=== PATIENT | female | born 1965 | race Caucasian/White ===

== ENCOUNTER 2019-01-04 18:36 | Emergency (ER) | payer OTHER ==
--- NOTE | 2019-01-04 18:44 | PDOC ---
Rapid Medical Evaluation Chief Complaint: Pain, Acute Time Seen by Provider: 01/04/19 18:39 Medical Evaluation: 01/04/19 18:40 I have performed a brief in-person evaluation of this patient. 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 report felt dizzy which has improved Pertinent physical exam findings: small lump with localized 2cm swelling to hairline of left forehead. no open wound I have ordered the following:nothing The patient will proceed to the ED for further evaluation. Discharge Disposition - Diagnosis Head contusion Qualifiers: Encounter type: initial encounter Contusion of head detail: scalp Qualified Code(s): S00.03XA - Contusion of scalp, initial encounter - Discharge Dispostion Condition at time of disposition: Stable - Referrals - Patient Instructions - Post Discharge Activity
[2019-01-04 18:46] VITALS: BP 122/76; PULSE 65; TEMP 98.4; BMI 25.6
--- NOTE | 2019-01-04 20:39 | PDOC ---
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 No: Vomiting Neurological: Yes: Headache, Dizziness *Physical Exam - Vital Signs Last Vital Signs Temp Pulse Resp BP Pulse Ox 98.4 F 65 16 122/76 100 01/04/19 18:42 01/04/19 18:42 01/04/19 18:42 01/04/19 18:42 01/04/19 18:42 - Physical Exam Comments: 01/04/19 20:37 HEAD: NC/AT EYES: Conjuntiva clear Ears: Canals and TM's normal NOSE: No d/c THROAT: Moist mucous membrances, oral pharanx clear, uvula midline NECK: Supple without adenopathy CARDIAC: S1 S2 LUNGS: CTA Full and Equal breath sounds ABDOMEN: Soft NT ND MS: Full ROM in all joints without edema NEUROLOGIC: No gross sensory or motor deficits, NVID SKIN: Normal color and temperature no lesions or rashes ED Treatment Course - RADIOLOGY Radiology Studies Ordered: Category Date Time Status HEAD CT WITHOUT CONTRAST [CT] Stat CT Scan 01/04/19 19:35 Completed Medical Decision Making - Medical Decision Making 01/04/19 20:37 CAT scan negative, we'll treat as closed head injury follow-up with neurology no strenuous activity until cleared by neurology *DC/Admit/Observation/Transfer Diagnosis at time of Disposition: Closed head injury Head contusion Qualifiers: Encounter type: initial encounter Contusion of head detail: scalp Qualified Code(s): S00.03XA - Contusion of scalp, initial encounter - Discharge Dispostion Disposition: HOME Condition at time of disposition: Stable Decision to Admit order: No - Referrals Referrals: Ji Winn MD [Staff Physician] - - Patient Instructions Printed Discharge Instructions: DI for Closed Head Injury Additional Instructions: Return to the emergency room for worsening symptoms. Tylenol for pain as directed. Follow-up with neurology in 1-2 days without fail for further evaluation and treatment options no strenuous activity until cleared by neurology. - Post Discharge Activity
== END 2019-01-04 20:42 | disposition home or self-care (01) ==
LOC: JERFT 18:36
DX: S00.03XA Contusion of scalp, initial encounter (principal); W22.8XXA Striking against or struck by other objects, initial encounter; Y93.89 Activity, other specified; Y92.34 Swimming pool (public) as the place of occurrence of the external cause; Y99.8 Other external cause status
CPT/HCPCS: 70450-TC; 99281-25

== ENCOUNTER 2021-05-10 04:41 | Day surgery (SDC) | payer OTHER ==
[2021-05-10 11:04] VITALS: BMI 27.8
[2021-05-10 12:52] VITALS: BP 124/72; PULSE 52; TEMP 97.8
== END 2021-05-10 13:04 | disposition home or self-care (01) ==
LOC: JASU-ENDO 04:41
PROVIDERS: ATTEND Internal Medicine Gastroenterology
PROC: 0DJD8ZZ Inspection of Lower Intestinal Tract, Via Natural or Artificial Opening Endoscopic (ICD-10-PCS; principal; 2021-05-10 11:15)
DX: Z12.11 Encounter for screening for malignant neoplasm of colon (principal); K63.89 Other specified diseases of intestine; K57.30 Diverticulosis of large intestine without perforation or abscess without bleeding

== ENCOUNTER 2023-10-06 16:18 | Emergency (ER) | payer OTHER ==
[2023-10-06 16:31] VITALS: RESP 18; TEMP 98; BMI 32.5
[2023-10-06] MEDS ORDERED: ACETAMINOPHEN INJECTION 100 ML IVPB ONE (18:23)
[2023-10-06] MEDS ORDERED: METOCLOPRAMIDE HCL INJECTION 10 MG/2 ML VIAL ONE (18:23)
[2023-10-06] MEDS ORDERED: MAG HYDROX/AL HYDROX/SIMETH 30 ML UNIT-DOSE CUP ONE (18:23)
[2023-10-06] MEDS ORDERED: MECLIZINE HCL 25 MG TABLET (FP) ONE (18:23)
[2023-10-06] MEDS ORDERED: FAMOTIDINE 20 MG/50 ML IVPB 20 MG/50 ML MG IVPB ONE (18:24)
[2023-10-06 18:34] LABS: BASO % 0.8 % (0-2.0); EOS % 2.7 % (0-4.5); HEMATOCRIT 38.3 % (32.4-45.2); HEMOGLOBIN 12.4 GM/dL (10.7-15.3); LYMPH % 34.4 % (8-40); MCH 27.4 pg (25.7-33.7); MCHC 32.4 g/dl (32.0-36.0); MEAN CELL VOLUME 84.3 fl (80-96); MEAN PLT VOLUME 8.9 fl (7.5-11.1); MONO % 6.5 % (3.8-10.2); NEUT % 55.6 % (42.8-82.8); PLATELET COUNT 297 10^3/uL (134-434); RBC 4.55 M/mm3 (3.60-5.2); RDW 14.5 % (11.6-15.6); WHITE BLOOD COUNT 11.4 K/mm3 (4.0-10.0)
[2023-10-06 18:48] LABS: CHLORIDE 107 mmol/L (98-107); SODIUM 140 mmol/L (136-145)
[2023-10-06 18:50] LABS: CALCIUM 9.5 mg/dL (8.5-10.1)
[2023-10-06 18:51] LABS: ALBUMIN 3.6 g/dl (3.4-5.0); ANION GAP 6 mmol/L (4-13); BLOOD UREA NITROGEN 17.5 mg/dL (7-18); CO2 27 mmol/L (21-32); GLUCOSE,RANDOM 126 mg/dL (74-106); MAGNESIUM 2.6 mg/dL (1.8-2.4)
[2023-10-06 18:54] LABS: CREATININE 0.8 mg/dL (0.55-1.3); SGOT/AST 23 U/L (15-37); SGPT/ALT 21 U/L (13-61)
[2023-10-06 18:56] LABS: BILIRUBIN,TOTAL < 0.1 mg/dL (0.2-1); TOT PROT 7.2 g/dl (6.4-8.2)
[2023-10-06] MEDS: ACETAMINOPHEN 1000 MG/100 ML BAG IVPB ONE (18:56)
[2023-10-06] MEDS: MAG HYDROX/AL HYDROX/SIMETH 30 ML UNIT-DOSE CUP PO ONE (18:56)
[2023-10-06 18:57] LABS: ALK PHOS 120 U/L (45-117)
[2023-10-06] MEDS: MECLIZINE HCL 25 MG TABLET (FP) PO ONE (18:57)
[2023-10-06 18:59] LABS: N-TERMINAL BNP 41.8 pg/ml (5-125)
[2023-10-06] MEDS: METOCLOPRAMIDE HCL INJECTION 10 MG/2 ML VIAL IVPUSH ONE (19:32)
[2023-10-06] MEDS: LACTATED RINGERS SOLUTION 1000 ML INFUS.BAG IV ONE (19:32)
[2023-10-06] MEDS: FAMOTIDINE 20 MG/50 ML IVPB 20 MG/50 ML MG IVPB ONE (20:13)
[2023-10-06 20:17] VITALS: BP 156/80; PULSE 60
[2023-10-06 21:25] LABS: URINE APPEARANCE CLEAR; URINE BILIRUBIN NEGATIVE (NEGATIVE); URINE COLOR YELLOW; URINE GLUCOSE (UA) NEGATIVE (NEGATIVE); URINE KETONE NEGATIVE (NEGATIVE); URINE LEUK ESTERASE NEGATIVE (NEGATIVE); URINE NITRITE NEGATIVE (NEGATIVE); URINE PROTEIN NEGATIVE (NEGATIVE); URINE UROBILINOGEN 0.2 mg/dL (0.2-1.0)
== END 2023-10-06 22:05 | disposition home or self-care (01) ==
LOC: JER 16:18
DX: R42 Dizziness and giddiness (principal); R51.9 Headache, unspecified; M54.2 Cervicalgia; R11.2 Nausea with vomiting, unspecified; R10.11 Right upper quadrant pain; Z20.822 Contact with and (suspected) exposure to COVID-19
CPT/HCPCS: 0241U-QW; 36415; 70450-TC; 76705-TC; 80053; 81003; 83735; 83880; 84484; 85025; 93005; 93010; 99285-25; J0131

== ENCOUNTER 2025-01-24 06:48 | Inpatient (IN) | payer OTHER ==
[2025-01-18 13:18] VITALS: BMI 25.7
[2025-01-24] MEDS ORDERED: ROCURONIUM BROMIDE 50 MG/5 ML SYRINGE ONE ×3 (09:48→13:20)
[2025-01-24] MEDS ORDERED: PROPOFOL 20 ML ONE ×2 (09:48→15:05)
[2025-01-24] MEDS ORDERED: DEXAMETHASONE SOD PHOSPHATE 4 MG/1 ML VIAL ONE (09:48)
[2025-01-24] MEDS ORDERED: LIDOCAINE HCL/PF 2% SDV 5ML VIAL ONE (09:48)
[2025-01-24] MEDS ORDERED: ONDANSETRON 4 MG/2 ML VIAL ONE (09:48)
[2025-01-24] MEDS ORDERED: MIDAZOLAM HCL 2 MG/2 ML SINGLE DOSE VIAL ONE (09:48)
[2025-01-24] MEDS ORDERED: HEPARIN NA (PORCINE) 5,000 UNITS/ML 1ML VIAL ONE (10:19)
[2025-01-24] MEDS ORDERED: cefOXitin SODIUM 2 GM VIAL (RESTRICTED TO ID) IVPB ONE (10:19)
[2025-01-24] MEDS ORDERED: BUPIVACAINE HCL/PF 0.25% (2.5MG/ML) 10 ML VIAL ONE (10:19)
[2025-01-24] MEDS ORDERED: ONDANSETRON 4 MG/2 ML VIAL IVPUSH PRN (10:22)
[2025-01-24] MEDS ORDERED: INDOCYANINE GREEN 25 MG/10 ML VIAL IVPUSH ONE (10:41)
[2025-01-24] MEDS: HEPARIN NA (PORCINE) 5,000 UNITS/ML 1ML VIAL SQ ONE (11:15)
[2025-01-24] MEDS: cefOXitin SODIUM 2 GM VIAL (RESTRICTED TO ID) IVPB ONE ×2 (11:21)
[2025-01-24] MEDS: BUPIVACAINE HCL/PF 0.25% (2.5MG/ML) 10 ML VIAL IJ ONE ×2 (12:30)
[2025-01-24] MEDS ORDERED: CEFOXITIN SODIUM 2 GM IVPB ONE (13:32)
[2025-01-24] MEDS ORDERED: SUGAMMADEX SODIUM 200 MG/2 ML VIAL ONE (14:56)
[2025-01-24] MEDS ORDERED: ACETAMINOPHEN INJECTION 100 ML ONE (16:51)
[2025-01-24] MEDS: ACETAMINOPHEN 1000 MG/100 ML BAG IVPB SCH (16:57)
[2025-01-24] MEDS: LACTATED RINGERS SOLUTION 1,000 ML IV SCH (17:30)
[2025-01-24] MEDS: CEFOXITIN SODIUM 2 GM in DEXTROSE 5%-WATER 100 ML IVPB SCH ×2 (18:16→20:15)
[2025-01-25 08:00] LABS: MCHC 31.7 g/dl (32.2-35.5); MEAN CELL VOLUME 82.2 fl (79.4-94.8); MEAN PLT VOLUME 10.3 fl (9.4-12.3); RDW 15.2 % (12.4-16.4)
[2025-01-25] MEDS: ONDANSETRON 4 MG/2 ML VIAL IVPUSH PRN (08:17)
[2025-01-25 08:48] LABS: GLUCOSE,RANDOM 118.0 mg/dL (74-106)
[2025-01-25 08:49] LABS: CO2 24.0 mmol/L (21-32)
[2025-01-25 08:54] LABS: CREATININE 0.53 mg/dL (0.55-1.3)
[2025-01-25] MEDS: LOSARTAN POTASSIUM 50 MG TABLET PO SCH (09:20)
[2025-01-25] MEDS: HYDROCHLOROTHIAZIDE 12.5 MG CAPSULE (FP) PO SCH (09:20)
[2025-01-25] MEDS: SIMETHICONE 80 MG TAB.CHEW (FP) PO PRN (14:52)
[2025-01-26] MEDS: diphenhydrAMINE HCL 25 MG CAPSULE (FP) PO ONE (05:04)
[2025-01-26 08:20] LABS: MCHC 31.8 g/dl (32.2-35.5); MEAN CELL VOLUME 82.9 fl (79.4-94.8); MEAN PLT VOLUME 10.5 fl (9.4-12.3); RDW 15.4 % (12.4-16.4)
[2025-01-26 09:05] LABS: GLUCOSE,RANDOM 80.0 mg/dL (74-106)
[2025-01-26 09:06] LABS: CO2 24.0 mmol/L (21-32)
[2025-01-26 09:11] LABS: CREATININE 0.58 mg/dL (0.55-1.3)
[2025-01-27 00:08] LABS: GLUCOSE,RANDOM 165.0 mg/dL (74-106)
[2025-01-27 00:09] LABS: TOT PROT 7.8 g/dl (6.4-8.2)
[2025-01-27 00:11] LABS: ALK PHOS 93.0 U/L (40-150)
[2025-01-27 01:35] LABS: CREATININE 0.52 mg/dL (0.55-1.3); SGOT/AST 25.0 U/L (5-34); SGPT/ALT 7.0 U/L (0-55)
[2025-01-27 01:36] LABS: CO2 18.0 mmol/L (21-32)
[2025-01-27 03:13] LABS: ABSOLUTE IMMATURE GRANULOCYTES 0.05 x10^3/uL (0.0-0.031); BASOPHILS # 0.03 x10^3/uL (0.01-0.08); EOSINOPHIL % 0.2 % (0.7-5.8); EOSINOPHILS # 0.02 x10^3/uL (0.04-0.36); MCHC 31.6 g/dl (32.2-35.5); MEAN CELL VOLUME 82.2 fl (79.4-94.8); MEAN PLT VOLUME 9.8 fl (9.4-12.3); MONOCYTE # 0.64 x10^3/uL (0.24-0.86); MONOCYTE % 4.9 % (4.7-12.5); RDW 15.3 % (12.4-16.4)
[2025-01-27 08:42] LABS: MCHC 31.4 g/dl (32.2-35.5); MEAN CELL VOLUME 81.8 fl (79.4-94.8); MEAN PLT VOLUME 10.2 fl (9.4-12.3); RDW 15.3 % (12.4-16.4)
[2025-01-27 09:43] LABS: GLUCOSE,RANDOM 88.0 mg/dL (74-106)
[2025-01-27 09:45] LABS: CO2 24.0 mmol/L (21-32)
[2025-01-27 09:49] LABS: CREATININE 0.51 mg/dL (0.55-1.3)
[2025-01-27] MEDS: ENOXAPARIN NA (PORCINE) 40 MG/0.4 ML DISP.SYRIN SQ SCH (10:25)
[2025-01-27 12:17] LABS: ABSOLUTE IMMATURE GRANULOCYTES 0.03 x10^3/uL (0.0-0.031); BASOPHILS # 0.05 x10^3/uL (0.01-0.08); EOSINOPHIL % 2.3 % (0.7-5.8); EOSINOPHILS # 0.28 x10^3/uL (0.04-0.36); MCHC 31.6 g/dl (32.2-35.5); MEAN CELL VOLUME 81.7 fl (79.4-94.8); MEAN PLT VOLUME 9.6 fl (9.4-12.3); MONOCYTE # 0.78 x10^3/uL (0.24-0.86); MONOCYTE % 6.3 % (4.7-12.5); RDW 15.4 % (12.4-16.4)
[2025-01-27] MEDS ORDERED: ONDANSETRON 4 MG/2 ML VIAL IVPUSH PRN (14:26)
[2025-01-27] MEDS ORDERED: SIMETHICONE 80 MG TAB.CHEW (FP) PO PRN (14:26)
[2025-01-27] MEDS: ACETAMINOPHEN 1000 MG/100 ML BAG IVPB SCH (16:29)
[2025-01-27] MEDS: ACETAMINOPHEN 500 MG TABLET (FP) PO ONE (23:11)
[2025-01-28 07:34] VITALS: RESP 18
[2025-01-28] MEDS: ACETAMINOPHEN 500 MG TABLET (FP) PO ONE (07:39)
[2025-01-28 08:03] LABS: MCHC 31.0 g/dl (32.2-35.5); MEAN CELL VOLUME 81.8 fl (79.4-94.8); MEAN PLT VOLUME 10.1 fl (9.4-12.3); RDW 15.1 % (12.4-16.4)
[2025-01-28 08:33] LABS: GLUCOSE,RANDOM 86.0 mg/dL (74-106)
[2025-01-28 08:35] LABS: CO2 23.0 mmol/L (21-32)
[2025-01-28 08:39] LABS: CREATININE 0.47 mg/dL (0.55-1.3)
[2025-01-28] MEDS: LOSARTAN POTASSIUM 50 MG TABLET PO SCH (09:27)
[2025-01-28] MEDS: HYDROCHLOROTHIAZIDE 12.5 MG CAPSULE (FP) PO SCH (09:27)
[2025-01-28] MEDS: PANTOPRAZOLE 40 MG TABLET PO SCH (11:06)
[2025-01-28] MEDS: MAG HYDROX/AL HYDROX/SIMETH 30 ML UNIT-DOSE CUP PO SCH (11:06)
[2025-01-28] MEDS: ENOXAPARIN NA (PORCINE) 40 MG/0.4 ML DISP.SYRIN SQ SCH (12:07)
[2025-01-28 15:38] VITALS: BP 112/75; PULSE 73; TEMP 98.1
== END 2025-01-28 16:56 | disposition home health service (06) | DRG 221 ==
LOC: J2C 06:48 → J8W 17:40 → J4S 01-27 01:17 → J8W 01-27 13:59
PROVIDERS: ADMIT Surgery; ATTEND Nurse Practitioner Acute Care
PROC: 0T788DZ Dilation of Bilateral Ureters with Intraluminal Device, Via Natural or Artificial Opening Endoscopic (ICD-10-PCS; 2025-01-24)
PROC: 8E0W4CZ Robotic Assisted Procedure of Trunk Region, Percutaneous Endoscopic Approach (ICD-10-PCS; 2025-01-24)
PROC: 0DBP4ZZ Excision of Rectum, Percutaneous Endoscopic Approach (ICD-10-PCS; principal; 2025-01-24 11:00)
PROC: 0WQF4ZZ Repair Abdominal Wall, Percutaneous Endoscopic Approach (ICD-10-PCS; 2025-01-24 11:00)
DX: Z43.3 Encounter for attention to colostomy (principal); K55.9 Vascular disorder of intestine, unspecified; I10 Essential (primary) hypertension; E78.5 Hyperlipidemia, unspecified; R00.0 Tachycardia, unspecified
CPT/HCPCS: 36415; 80048; 80053; 82962; 83735; 83880; 84100; 84484; 85025; 85027; 86140; 86850; 86900; 86901; 88304-TC; 88307-TC; 93005; 93010; 93306-TC; 93970-TC; 94010; 94760; 97116-GP; 97161-GP

== ENCOUNTER 2025-02-08 22:58 | Emergency (ER) | payer OTHER ==
[2025-02-08 23:19] VITALS: TEMP 98.2; BMI 30.7
[2025-02-09] MEDS ORDERED: ACETAMINOPHEN INJECTION 100 ML ONE (00:13)
[2025-02-09] MEDS ORDERED: ONDANSETRON 4 MG/2 ML VIAL ONE (00:13)
[2025-02-09] MEDS: ACETAMINOPHEN 1000 MG/100 ML BAG IVPB ONE (00:24)
[2025-02-09] MEDS: ONDANSETRON 4 MG/2 ML VIAL IVPUSH ONE (00:24)
[2025-02-09] MEDS: LACTATED RINGERS SOLUTION 1000 ML INFUS.BAG IV ONE (00:24)
[2025-02-09 00:57] LABS: ABSOLUTE IMMATURE GRANULOCYTES 0.05 x10^3/uL (0.0-0.031); BASOPHILS # 0.06 x10^3/uL (0.01-0.08); EOSINOPHIL % 1.3 % (0.7-5.8); EOSINOPHILS # 0.14 x10^3/uL (0.04-0.36); MCHC 31.0 g/dl (32.2-35.5); MEAN CELL VOLUME 84.7 fl (79.4-94.8); MEAN PLT VOLUME 10.4 fl (9.4-12.3); MONOCYTE # 0.69 x10^3/uL (0.24-0.86); MONOCYTE % 6.2 % (4.7-12.5); RDW 15.1 % (12.4-16.4)
[2025-02-09 01:14] LABS: GLUCOSE,RANDOM 131.0 mg/dL (74-106)
[2025-02-09 01:15] LABS: TOT PROT 7.3 g/dl (6.4-8.2)
[2025-02-09 01:16] LABS: CO2 24.0 mmol/L (21-32)
[2025-02-09 01:17] LABS: ALK PHOS 94.0 U/L (40-150)
[2025-02-09 01:20] LABS: CREATININE 0.76 mg/dL (0.55-1.3); SGOT/AST 16.0 U/L (5-34); SGPT/ALT 12.0 U/L (0-55)
[2025-02-09 01:21] LABS: INR 0.98 (0.83-1.09); PROTHROMBIN TIME (PATIENT) 10.7 SEC (9.7-13.0)
[2025-02-09 01:24] LABS: ACTIVATED PTT 31.3 SECONDS (25.2-36.5)
[2025-02-09 01:39] LABS: URINE APPEARANCE CLEAR; URINE BILIRUBIN NEGATIVE (NEGATIVE); URINE COLOR YELLOW; URINE GLUCOSE (UA) NEGATIVE (NEGATIVE); URINE KETONE NEGATIVE (NEGATIVE); URINE LEUK ESTERASE NEGATIVE (NEGATIVE); URINE NITRITE NEGATIVE (NEGATIVE); URINE PROTEIN NEGATIVE (NEGATIVE); URINE UROBILINOGEN 0.2 mg/dL (0.2-1.0)
[2025-02-09 01:42] LABS: HIV INTERPRETATION NEGATIVE (NEGATIVE)
[2025-02-09 01:43] LABS: HCV DIAGNOSTIC IN-HOUSE W/RFLX NON-REACTIVE (NONREACTIVE)
[2025-02-09 03:09] VITALS: BP 155/90; PULSE 61; RESP 16
== END 2025-02-09 03:05 | disposition home or self-care (01) ==
LOC: JER 22:58
PROC: 3E033NZ Introduction of Analgesics, Hypnotics, Sedatives into Peripheral Vein, Percutaneous Approach (ICD-10-PCS; principal; 2025-02-09)
PROC: 3E033GC Introduction of Other Therapeutic Substance into Peripheral Vein, Percutaneous Approach (ICD-10-PCS; 2025-02-09)
DX: R10.84 Generalized abdominal pain (principal); R11.0 Nausea; R19.7 Diarrhea, unspecified
CPT/HCPCS: 36415; 71045-TC-FY; 74177-TC; 80053; 81003; 83690; 83735; 85025; 85610; 85730; 86803; 87086; 87389; 99285-25; Q9967

== ENCOUNTER 2025-03-25 12:43 | Emergency (ER) | payer OTHER ==
[2025-03-25 12:52] VITALS: RESP 18; TEMP 98.3; BMI 24.6
[2025-03-25 16:21] LABS: MCHC 31.2 g/dl (32.2-35.5); MEAN CELL VOLUME 86.0 fl (79.4-94.8); MEAN PLT VOLUME 9.8 fl (9.4-12.3); RDW 14.8 % (12.4-16.4)
[2025-03-25 16:42] LABS: GLUCOSE,RANDOM 86.0 mg/dL (74-106); TOT PROT 8.1 g/dl (6.4-8.2)
[2025-03-25 16:43] LABS: CO2 27.0 mmol/L (21-32)
[2025-03-25 16:44] LABS: ALK PHOS 125.0 U/L (40-150)
[2025-03-25 16:47] LABS: SGOT/AST 21.0 U/L (5-34); SGPT/ALT 18.0 U/L (0-55)
[2025-03-25 16:48] LABS: CREATININE 0.48 mg/dL (0.55-1.3)
[2025-03-25 17:55] VITALS: BP 144/81; PULSE 63
== END 2025-03-25 18:05 | disposition home or self-care (01) ==
LOC: JER 12:43
DX: I10 Essential (primary) hypertension (principal); R51.9 Headache, unspecified; R42 Dizziness and giddiness; R10.84 Generalized abdominal pain
CPT/HCPCS: 36415; 70450-TC; 71046-TC-FY; 80053; 84484; 85025; 93005; 93010; 99285-25